=== PATIENT | female | born 1995 | race Two or more races ===

== ENCOUNTER 2020-07-18 04:12 | Day surgery (SDC) | payer OTHER ==
[2020-07-16 16:15] VITALS: BMI 21.6
[2020-07-18] MEDS ORDERED: ACETAMINOPHEN INJECTION 100 ML IVPB ONE (06:29)
[2020-07-18] MEDS ORDERED: DEXMEDETOMIDINE HCL 200 MCG/2 ML IVPB ONE (06:31)
[2020-07-18] MEDS ORDERED: LIDOCAINE HCL/PF 2% SDV 5ML VIAL ONE ×2 (06:52→09:04)
[2020-07-18] MEDS ORDERED: ceFAZolin SODIUM 1 GM VIAL ONE (06:52)
[2020-07-18] MEDS ORDERED: LIDOCAINE HCL 2% JELLY (5 ML/TUBE) ONE (06:52)
[2020-07-18] MEDS ORDERED: MIDAZOLAM HCL 2 MG/2 ML SINGLE DOSE VIAL ONE (06:53)
[2020-07-18] MEDS ORDERED: fentaNYL CITRATE 250 MCG/5 ML VIAL ONE (06:54)
[2020-07-18] MEDS ORDERED: KETAMINE HCL 200 MG/20 ML VIAL ONE (06:54)
[2020-07-18] MEDS ORDERED: PROPOFOL 20 ML ONE ×3 (06:56→09:02)
[2020-07-18] MEDS ORDERED: MICROFIBRILLAR COLLAGEN 1 GM EACH ONE (07:16)
[2020-07-18] MEDS ORDERED: LIDOCAINE 1%/EPI 1:100000 (50 ML MULTI DOSE VIAL) ONE (07:16)
[2020-07-18] MEDS ORDERED: THROMBIN (BOVINE) 5,000 UNIT VIAL TP ONE (07:17)
[2020-07-18] MEDS ORDERED: DESFLURANE GAS 240 ML BOTTLE IH ONE (07:20)
[2020-07-18] MEDS ORDERED: BUPIVACAINE HCL 50 ML ONE (07:22)
[2020-07-18] MEDS ORDERED: ceFAZolin SODIUM 1 GM VIAL IVPB ONE (08:35)
[2020-07-18] MEDS ORDERED: EPHEDRINE SULFATE/0.9% NACL/PF 50 MG/10 ML SYRINGE NR ONE (09:02)
[2020-07-18] MEDS ORDERED: SUCCINYLCHOLINE CHLORIDE 200 MG/10 ML SYRINGE ONE (09:02)
[2020-07-18] MEDS ORDERED: ONDANSETRON 4 MG/2 ML VIAL ONE ×3 (09:58→14:45)
[2020-07-18] MEDS ORDERED: ONDANSETRON 4 MG/2 ML VIAL IVPUSH ONE (10:15)
[2020-07-18] MEDS ORDERED: ONDANSETRON 4 MG/2 ML VIAL IVPUSH PRN (10:19)
[2020-07-18] MEDS ORDERED: PROMETHAZINE HCL 25 MG/1 ML VIAL IVPUSH PRN (10:19)
[2020-07-18] MEDS ORDERED: CALCITRIOL 0.25 MCG CAPSULE (FP) PO SCH (10:30)
[2020-07-18] MEDS ORDERED: PROMETHAZINE HCL 25 MG/1 ML VIAL IVPB ONE (10:30)
[2020-07-18] MEDS ORDERED: LACTATED RINGERS SOLUTION 1,000 ML IV SCH (10:30)
[2020-07-18] MEDS ORDERED: oxyCODONE HCL 5 MG TABLET PO ONE (13:25)
[2020-07-18] MEDS ORDERED: oxyCODONE HCL 5 MG TABLET ONE (13:26)
[2020-07-18] MEDS ORDERED: SCOPOLAMINE HYDROBROMIDE 1 PATCH PATCH.TD72 TD SCH ×2 (15:15→15:19)
[2020-07-18 18:11] VITALS: BP 107/68; PULSE 81; TEMP 98.1
== END 2020-07-18 17:20 | disposition home or self-care (01) ==
LOC: JASU-SURG 04:12
PROVIDERS: ATTEND Surgery
PROC: 0GBJ0ZZ Excision of Thyroid Gland Isthmus, Open Approach (ICD-10-PCS; 2020-07-18)
PROC: 0GTK0ZZ Resection of Thyroid Gland, Open Approach (ICD-10-PCS; principal; 2020-07-18 08:00)
DX: C73 Malignant neoplasm of thyroid gland (principal)
CPT/HCPCS: 88307-TC; 94760; J0131